=== PATIENT | female | born 1990 | race Caucasian/White ===

== ENCOUNTER 2023-04-27 09:30 | Emergency (ER) | payer OTHER, SELFPAY ==
[2023-04-27 09:38] VITALS: BP 124/85; PULSE 102; RESP 18; TEMP 37.1; O2SAT 100
--- NOTE | 2023-04-27 10:15 | W.ED.GENAD ---
Discharge Plan Disposition Patient Disposition: Home Discharge Details Clinical Impression: Closed right fibular fracture Primary Care Provider: [facility] Provider: Toni Boss Home Meds and New Rx's Prescriptions: No Action No Known Home Meds Discharge Instructions Instructions: Leg Fracture (ED) Additional Instructions: You are seen in the emergency department for your leg pain. Your plain films showed signs of a nondisplaced fracture of your distal fibula. You are receiving a walking boot and crutches. You may bear weight on your right lower extremity as tolerated. Please follow-up with orthopedic team in 1 week. These generally do not require surgery but some will require a surgery. You will need repeat x-rays in 1 week. For your pain please take medications as follows: 1. Take acetaminophen (Tylenol), 1,000 mg (two 500 mg tabs) every 6 hours 2. Take ibuprofen (Advil), 400 mg every 6 hours. Discharge Data Discharge Date/Time-TO BE ENTERED AT DEPARTURE: 04/27/23 12:26 Medical Decision Making This is an overall well-appearing mildly tachycardic but normothermic 32-year-old female with right lateral tibial pain concerning for fracture. No pain out of proportion or fevers to suggest necrotizing soft tissue infection. Right foot warm well perfused so I am not concerned for acute vascular insult and patient lacks vascular risk factors and has no history of peripheral vascular disease. No head strike to suggest increased risk for intracranial hemorrhage. No anticoagulation to suggest need for reversal. Will reassess following plain films. 11:31 AM I spoke with Dr. Watkins from orthopedics as the patient was found to have a comminuted nondisplaced fracture of her distal fibula. He reviewed the patient's films. He advised weightbearing as tolerated in a tall walking boot with crutches as needed for pain. He said that patient may require surgery but this would be determined after repeat plain films in 1 week. I will update the patient on these findings. I will advise acetaminophen and ibuprofen for pain. Patient reports wanting to follow up out of state. I advised ED return for worsening pain or parasethisias. She understood her return indications and will be discharged with an empiric trial of expectant outpatient managment. 12 PM Repeat heart rate normalized in the ED with analgesia. HPI General Date/Time Provider Initiated Documentation: 04/27/23 10:14. HPI Narrative: This is a 32-year-old previously healthy female from [place] arriving to the emergency department following a fall. Patient was wearing crocs and slipped on a grassy hill. She is camping locally. She did not hit her head. She is not anticoagulated. She reports that she heard a pop when she fell. She has not had any broken bones in the past. She has not had any prior surgeries to the right lower extremity. She denies routine tobacco, ethanol, and illicits. She was in her usual state of health earlier this morning and denies any fever chills nausea vomiting chest pain shortness of breath. Related Data Home Medications Medication Instructions Recorded Confirmed Unknown [No Known Home Meds] 04/27/23 04/27/23 Allergies Allergy/AdvReac Type Severity Reaction Status Date / Time No Known Allergies Allergy Unverified 04/27/23 09:41 General Stated Complaint: Orthopedic YONIS: 4 PFS All Active Problems (Updated 04/27/23 @ 11:30 by Toni Boss MD) Closed right fibular fracture (Acute) Social History Smoking/Tobacco Use Status: Never Smoking risk assessment performed?: Yes Alcohol Intake: current Alcohol Intake frequency: a few times a week Drug use: Never Substance use type: does not use Housing: house Do you feel safe at home: Yes Do you feel safe in your relationship?: Yes Exam Narrative Exam Narrative: General: Well-appearing in no acute distress speaking in complete sentences. Head: Normocephalic, atraumatic. Eye: Extraocular eye movements intact. No conjunctival injection. No scleral icterus. Ear, nose, mouth, throat: Grossly normal inspection. Normal voice, handling secretions normally. Neck: Trachea midline. Cardiovascular: Well-perfused distal extremities. Respiratory: Nonlabored respiration. Gastrointestinal: Nondistended abdomen. Musculoskeletal: Right tibia with lateral tenderness in the distal third with mild swelling. Right foot warm well perfused with 2+ PT and DP pulses. Cap refill less than 2 seconds to the right foot. No knee tenderness. No proximal tibial tenderness. No lateral nor medial malleoli or tenderness on the right. Skin: Normal for age and race, grossly normal temperature and turgor. No acute rash. Neurologic: Alert and appropriate, no apparent acute deficits. Psychiatric: Mood and manner are appropriate. Grooming and personal hygiene are appropriate. Course Vital Signs Vital signs: Vital Signs Temperature 37.1 C 04/27/23 09:38 Pulse 102 H 04/27/23 09:38 Respiratory Rate 18 04/27/23 09:38 Blood Pressure 124/85 04/27/23 09:38 Pulse Oximetry 100 04/27/23 09:38 Temperature 37.1 C 04/27/23 09:38 Temperature Source Temporal Artery Scan 04/27/23 09:38 Pulse 102 H 04/27/23 09:38 Respiratory Rate 18 04/27/23 09:38 Respiratory Effort Normal, Non-Labored 04/27/23 09:42 Blood Pressure 124/85 04/27/23 09:38 Blood Pressure Position Sitting 04/27/23 09:38 Pulse Oximetry 100 04/27/23 09:38 Oxygen Delivery Method Room Air 04/27/23 09:38 Oxygen Flow Rate 0 04/27/23 09:38 PAWSS Have you Been Recently Intoxicated or Drunk Within the Last 30 days?: No Have you Ever Experienced Previous Episodes of Alcohol Withdrawal?: No Have you ever Experienced Withdrawal Seizures?: No Have you ever Experienced Delirium Tremens(DT)s?: No Have you ever undergone Alcohol Rehabilitation Treatment (i.e, inpt ot outpatient treatment programs)?: No Have you ever Experienced Blackouts?: No Have you ever Combined Alcohol with other Downers within the last 90 days?: No Have you ever Combined Alcohol with any other Substance of Abuse during the last 90 days?: No Positive Blood Alcohol level on Presentation? [PCS.BAL]: No Evidence of Increased Autonomic Activity (i.e. HR>120, tremor, sweating, agitation, nausea)?: No Result: 0
--- NOTE | 2023-04-27 10:30 | DI.RAD_ITS ---
Exam(s) XR TIB/FIB RT EXAM: XR TIB/FIB RT CLINICAL HISTORY: Right tibial pain. TECHNIQUE: 2D digital imaging was performed. Two views. COMPARISON: No exams were available for comparison FINDINGS: BONES: Mildly comminuted fracture distal fibula without significant displacement. No additional fra ctures identified. Ankle mortise does not appear widened. No bony destructive lesion is seen. Visua lized portion of knee and ankle joints are unremarkable. SOFT TISSUE: Normal. IMPRESSION: Distal fibular fracture DATA REPOSITORY: RADIATION DOSE DELIVERED:
[2023-04-27] MEDS: Ibuprofen 600 MG TAB PO (10:50)
[2023-04-27] MEDS: Acetaminophen 500 MG TAB 1000 MG PO (10:51)
[2023-04-27] MEDS: oxyCODONE 5 MG TAB PO (10:51)
--- NOTE | 2023-04-27 11:14 | DI.VRAD_ITS ---
PROCEDURE INFORMATION: Exam: XR Right Tibia and Fibula Exam date and time: 04/27/2023 11:03 AM Age: 32 years old Clinical indication: Injury or trauma; Fall; Fracture, traumatic; Closed fracture; Fibula; Right TECHNIQUE: Imaging protocol: Radiologic exam of the right tibia and fibula. Views: 2 views. COMPARISON: No relevant prior studies available. FINDINGS: Bones/joints: A comminuted essentially nondisplaced fracture of the distal fibula. Soft tissues: Soft tissue swelling has the level of the fracture IMPRESSION: A comminuted essentially nondisplaced fracture of the distal fibula. Dictated and Authenticated by: Genesis Bueno MD. Ordering:KAILEE Muñoz MD
[2023-04-27 12:08] VITALS: PULSE 80
== END 2023-04-27 12:26 | disposition home or self-care (01) ==
PROVIDERS: Emergency Provider Emergency Medicine
DX: S82.454A Nondisplaced comminuted fracture of shaft of right fibula, initial encounter for closed fracture (principal); W17.81XA Fall down embankment (hill), initial encounter; Y93.01 Activity, walking, marching and hiking; Y92.833 Campsite as the place of occurrence of the external cause; Y99.9 Unspecified external cause status
CPT/HCPCS: 99283; 73590